=== PATIENT | male | born 1970 | race Caucasian/White ===

== ENCOUNTER 2020-06-08 07:04 | Emergency (ER) | payer SELFPAY ==
[~2020-06-08] VITALS: Ht 188 cm; Wt 106.6 kg
[2020-06-08] MEDS ORDERED: CEPH500 PO (08:30)
[2020-06-08] MEDS ORDERED: Monodox100 MG PO (08:30)
== END 2020-06-08 08:40 | disposition home or self-care (01) ==
LOC: ER 07:04
DX: L03.012 Cellulitis of left finger (principal); L03.115 Cellulitis of right lower limb; I96 Gangrene, not elsewhere classified; F17.200 Nicotine dependence, unspecified, uncomplicated
CPT/HCPCS: 99282